=== PATIENT | male | born 1970 | race Caucasian/White ===

== ENCOUNTER 2016-12-27 17:52 | Emergency (ER) | payer MEDICAID ==
[2016-12-27] MEDS ORDERED: METHYLPREDNISOLONE INJ 125 MG/2 ML SDV IV ONE (18:38)
[2016-12-27] MEDS ORDERED: IPRATROPIUM/ALBUTEROL 0.5-2.5 MG/3 ML AMPUL NEB ONE (18:39)
--- NOTE | 2016-12-27 18:43 | ER Document Report ---
ED Medical Screen (RME) - General Chief Complaint: Shortness Of Breath Stated Complaint: SHORTNESS OF BREATH Time Seen by Provider: 12/27/16 18:21 Mode of Arrival: Ambulatory Information source: Patient Notes: 46-year-old male presents to ED for shortness of breath 3 days. He states he is having trouble catching his breath. Pulse ox is 93%. Blood pressure is 169/ 106 with a pulse of 91. He states he thought he had a cold took Mucinex but is not feeling any better and is very short of breath. Lung sounds are diminished bilaterally. 3+ pedal edema bilaterally. Patient has a history of elevated blood pressure states he takes clonidine Lasix Lopressor and potassium chloride. He states he also uses a CPAP at night. He states he is not on oxygen at home. I have greeted and performed a rapid initial assessment of this patient. A comprehensive ED assessment and evaluation of the patient, analysis of test results and completion of medical decision making process will be conducted by an additional ED providers. TRAVEL OUTSIDE OF THE [place] IN LAST 30 DAYS: No - HPI Onset: Other - 3 days Onset/Duration: Gradual, Worse Quality of pain: Other - tight Associated Symptoms: Cough (productive), Shortness of breath, Sinus pain/ drainage Exacerbated by: Movement Relieved by: Denies Similar symptoms previously: Yes Recently seen / treated by doctor: No - Related Data Smoking: Other - former Allergies/Adverse Reactions: No Known Allergies Allergy (Verified 12/31/14 22:32) Home Medications: Current Home Medications Baclofen [Baclofen 10 mg Tablet] 10 mg PO QAM 12/27/16 [History] Fluticasone/Vilanterol [Breo Ellipta 100-25 Mcg INH] 1 each IH DAILY 12/27/16 [ History] Losartan/Hydrochlorothiazide [Hyzaar 100-12.5 Tablet] 1 each PO DAILY 12/27/16 [ History] Past Medical History - Social History Chew tobacco use (# tins/day): No Frequency of alcohol use: Occasional Drug Abuse: None - Past Medical History Cardiac Medical History: Reports: Hx Hypertension Pulmonary Medical History: Reports: Hx COPD Renal/ Medical History: Denies: Hx Peritoneal Dialysis Psychiatric Medical History: Denies: Hx Depression - Immunizations Hx Diphtheria, Pertussis, Tetanus Vaccination: Yes Physical Exam - Vital signs Vitals: Temp Pulse Resp BP Pulse Ox 98.4 F 93 24 H 149/95 H 93 12/27/16 17:56 12/27/16 17:56 12/27/16 17:56 12/27/16 17:56 12/27/16 17:56 Course - Vital Signs Vital signs: Temp Pulse Resp BP Pulse Ox 98.4 F 93 24 H 149/95 H 93 12/27/16 17:56 12/27/16 17:56 12/27/16 17:56 12/27/16 17:56 12/27/16 17:56
[2016-12-27] MEDS ORDERED: ALBUTEROL SULFATE 0.083% NEB 2.5 MG/3 ML AMPUL NEB SCH (18:45)
--- NOTE | 2016-12-27 19:13 | RADIOLOGY REPORT (SQ) ---
EXAM DESCRIPTION: CHEST PA/LAT COMPLETED DATE/TIME: 12/27/2016 6:57 pm REASON FOR STUDY: cough short of breath COMPARISON: 01/01/2015. EXAM PARAMETERS: NUMBER OF VIEWS: two views TECHNIQUE: Digital Frontal and Lateral radiographic views of the chest acquired. RADIATION DOSE: NA LIMITATIONS: none FINDINGS: LUNGS AND PLEURA: No opacities, masses or pneumothorax. No pleural effusion. MEDIASTINUM AND HILAR STRUCTURES: No masses or contour abnormalities. HEART AND VASCULAR STRUCTURES: Heart normal size. No evidence for failure. BONES: No acute findings. HARDWARE: None in the chest. OTHER: No other significant finding. IMPRESSION: NO ACUTE RADIOGRAPHIC FINDING IN THE CHEST. TECHNICAL DOCUMENTATION: JOB ID: [id number] [employer]- All Rights Reserved
--- NOTE | 2016-12-27 19:20 | ER Document Report ---
ED Respiratory Problem - General Chief Complaint: Shortness Of Breath Stated Complaint: SHORTNESS OF BREATH Time Seen by Provider: 12/27/16 18:21 Mode of Arrival: Ambulatory Notes: Patient is a 46-year-old male who comes emergency department for chief complaint of shortness of breath, cough, congestion, he states this has been worsening for about 3 days, he states he coughed a lot of sputum out earlier today after taking Mucinex. He smokes, he has a history of COPD, he wears a CPAP at night for sleep apnea, does not wear oxygen otherwise. He also is treated for hypertension, he denies other medical history. He denies chest pain , fever, dizziness, abdominal pain, vomiting. TRAVEL OUTSIDE OF THE [place] IN LAST 30 DAYS: No - Related Data Allergies/Adverse Reactions: No Known Allergies Allergy (Verified 12/31/14 22:32) Home Medications: Current Home Medications Baclofen [Baclofen 10 mg Tablet] 10 mg PO QAM 12/27/16 [History] Fluticasone/Vilanterol [Breo Ellipta 100-25 Mcg INH] 1 each IH DAILY 12/27/16 [ History] Losartan/Hydrochlorothiazide [Hyzaar 100-12.5 Tablet] 1 each PO DAILY 12/27/16 [ History] Past Medical History - General Information source: Patient - Social History Smoking Status: Current Every Day Smoker Chew tobacco use (# tins/day): No Frequency of alcohol use: Occasional Drug Abuse: None Lives with: Alone Family History: Reviewed & Not Pertinent - Past Medical History Cardiac Medical History: Reports: Hx Hypertension Pulmonary Medical History: Reports: Hx COPD Renal/ Medical History: Denies: Hx Peritoneal Dialysis Psychiatric Medical History: Denies: Hx Depression Surgical Hx: Negative - Immunizations Hx Diphtheria, Pertussis, Tetanus Vaccination: Yes Review of Systems - Review of Systems Constitutional: No symptoms reported EENT: No symptoms reported Cardiovascular: No symptoms reported Respiratory: See HPI Gastrointestinal: No symptoms reported Genitourinary: No symptoms reported Male Genitourinary: No symptoms reported Musculoskeletal: No symptoms reported Skin: No symptoms reported Hematologic/Lymphatic: No symptoms reported Neurological/Psychological: No symptoms reported Physical Exam - Vital signs Vitals: Temp Pulse Resp BP Pulse Ox 98.4 F 93 24 H 149/95 H 93 12/27/16 17:56 12/27/16 17:56 12/27/16 17:56 12/27/16 17:56 12/27/16 17:56 Interpretation: Normal - General General appearance: Appears well, Alert In distress: None - HEENT Head: Normocephalic, Atraumatic Eyes: Normal Pupils: PERRL - Respiratory Respiratory status: No respiratory distress. No: Respiratory distress, Labored , Tachypnea Chest status: Nontender Breath sounds: Decreased air movement, Wheezing - Small amount of end expiratory wheezes noted on the left side only, decreased breath sounds throughout, otherwise unremarkable lung auscultation Chest palpation: Normal - Cardiovascular Rhythm: Regular. No: Tachycardia Heart sounds: Normal auscultation, S1 appreciated, S2 appreciated Murmur: No - Abdominal Inspection: Normal Distension: No distension Bowel sounds: Normal Tenderness: Nontender. No: Tender, Guarding Organomegaly: No organomegaly - Back Back: Normal, Nontender - Extremities General upper extremity: Normal inspection, Nontender, Normal color, Normal ROM , Normal temperature General lower extremity: Other - Chronic lower extremity discoloration, no pitting edema, unremarkable extremity as otherwise, normal distal neurovascular exam. No: Edema - Neurological Neuro grossly intact: Yes Cognition: Normal Orientation: AAOx4 [place] Coma Scale Eye Opening: Spontaneous [place] Coma Scale Verbal: Oriented [place] Coma Scale Motor: Obeys Commands [place] Coma Scale Total: 15 Speech: Normal Motor strength normal: LUE, RUE, LLE, RLE Sensory: Normal - Psychological Associated symptoms: Normal affect, Normal mood - Skin Skin Temperature: Warm Skin Moisture: Dry Skin Color: Normal Course - Re-evaluation Re-evalutation: Patient with minimal expiratory wheezes on my examination, this resolved after a single treatment, well-appearing with no tachypnea, retractions, no hypoxia on room air. Chest x-ray unremarkable, CBC, chemistry unremarkable, EKG with no acute abnormalities. Discussed with patient, he states he feels much better and he would like to be treated at home. Patient ambulated with pulse oxygenation testing without any concerning desaturations or significant tachycardia. He does not appear to have any distress and stopped mild tachypnea almost immediately after resting. Patient discharged home with prednisone, doxycycline, follow-up instructions and strict return precautions. Patient states satisfaction and agreement. - Vital Signs Vital signs: Temp Pulse Resp BP Pulse Ox 98.4 F 93 24 H 149/89 H 91 L 12/27/16 17:56 12/27/16 17:56 12/27/16 17:56 12/27/16 22:00 12/27/16 22:01 - Laboratory Result Diagrams: 12/27/16 20:12 12/27/16 20:12 Laboratory results interpreted by me: 12/27/16 12/27/16 20:12 20:12 Monocytes % 13.6 H Carbon Dioxide 32 H Creatine Kinase 172 H Discharge - Discharge Clinical Impression: Shortness of breath, COPD exacerbation Condition: Stable Disposition: HOME, SELF-CARE Additional Instructions: Your chest x-ray and workup did not show any concerning findings, your examination and symptoms are consistent with an upper respiratory source of your symptoms along with your sinuses. Take the prednisone as prescribed, take the doxycycline antibiotic as prescribed, rest. Follow-up with your primary care provider. Return to emergency department for any concerning or worsening symptoms -worsening difficulty breathing, spiking fever, or any other concerning symptoms. Prescriptions: Doxycycline Hyclate 100 mg PO BID #14 capsule Prednisone 60 mg PO DAILY #15 tablet
--- NOTE | 2016-12-27 20:18 | EKG REPORT ---
SEVERITY:- OTHERWISE NORMAL ECG - SINUS RHYTHM ATRIAL PREMATURE COMPLEX : Confirmed by: Kamryn Nolasco MD 27-Dec-2016 20:17:44
[2016-12-27 20:29] LABS: ABSOLUTE BASOPHILS # (AUTO) 0.1 10^3/uL (0.0-0.2); ABSOLUTE EOSINOPHILS # (AUTO) 0.3 10^3/uL (0.0-0.6); ABSOLUTE MONOCYTES (AUTO) 0.9 10^3/uL (0.1-1.4); ABSOLUTE NEUT (AUTO) 3.2 10^3/uL (1.7-8.2); BASOPHILS % (AUTO) 1.1 % (0-2); EOSINOPHILS % (AUTO) 4.6 % (0-6); HEMATOCRIT 46.7 % (37.9-51.0); HEMOGLOBIN 16.6 g/dL (13.5-17.0); HGB HCT DIFFERENCE 3.1; MEAN CORPUSCULAR HEMOGLOBIN 30.9 pg (27.0-33.4); MEAN CORPUSCULAR HGB CONC 35.5 g/dL (32.0-36.0); MEAN CORPUSCULAR VOLUME 87 fl (80-97); MONOCYTES % (AUTO) 13.6 % (3-13); RED BLOOD COUNT 5.37 10^6/uL (4.35-5.55); RED CELL DISTRIBUTION WIDTH 13.9 % (11.5-14.0); SEGMENTED NEUTROPHILS % (AUTO) 49.7 % (42-78); WHITE BLOOD COUNT 6.4 10^3/uL (4.0-10.5)
[2016-12-27 20:53] LABS: ALANINE AMINOTRANSFERASE 64 U/L (21-72); ALBUMIN 4.2 g/dL (3.5-5.0); ALKALINE PHOSPHATASE 84 U/L (38-126); ANION GAP 11 (5-19); ASPARTATE AMINO TRANSFERASE 43 U/L (17-59); BILIRUBIN,DIRECT 0.4 mg/dL (0.0-0.4); BILIRUBIN,TOTAL 0.7 mg/dL (0.2-1.3); BLOOD UREA NITROGEN 14 mg/dL (7-20); CALCIUM 9.5 mg/dL (8.4-10.2); CARBON DIOXIDE 32 mmol/L (22-30); CHLORIDE 99 mmol/L (98-107); CREATINE KINASE 172 U/L (55-170); CREATININE RESULT 0.87 mg/dL (0.52-1.25); GLUCOSE 99 mg/dL (75-110); SODIUM 142.2 mmol/L (137-145); TOTAL PROTEIN 7.4 g/dL (6.3-8.2)
[2016-12-27 21:04] LABS: CREATINE KINASE MB 1.88 ng/mL (<4.55)
[2016-12-27 21:05] LABS: TROPONIN I < 0.012 ng/mL
[2016-12-27 22:09] VITALS: BP 149/89
== END 2016-12-27 22:09 | disposition home or self-care (01) ==
LOC: ER 17:52
DX: J44.1 Chronic obstructive pulmonary disease with (acute) exacerbation (principal); I10 Essential (primary) hypertension; F17.200 Nicotine dependence, unspecified, uncomplicated
CPT/HCPCS: 93005; 94640; 99285; 96374; 36415; 82553; 82550; 85025; 80053; 84484; 71020; 93010; J2930; J7620

== ENCOUNTER 2017-04-15 18:57 | Emergency (ER) | payer MEDICAID ==
--- NOTE | 2017-04-15 19:52 | ER Document Report ---
ED Medical Screen (RME) - General Chief Complaint: Breathing Difficulty Stated Complaint: BREATHING PROBLEMS Time Seen by Provider: 04/15/17 19:45 Mode of Arrival: Ambulatory Information source: Patient Notes: 46 yo obese male, HTN c/o having trouble breathing through his nose with exertion going on for a while, but worse past few weeks, has to stop to catch his breath. Nothing helps, albuterol nebulizer, MDI, Breo. No PCP: Rupali Christie. Thinks he has a deviated septum, uses Vicks Sinex helps some, using the nasal spray several times a day. Hx COPD, CPAP at night. No CAD, no CHF. Lower leg swelling for 1 month. No stress, cath, or echo. Hospitalized with leg cellulitis in the past. pulse ox 93% NO fever. TRAVEL OUTSIDE OF THE [place] IN LAST 30 DAYS: No - Related Data Allergies/Adverse Reactions: No Known Allergies Allergy (Verified 12/31/14 22:32) Past Medical History - Past Medical History Cardiac Medical History: Reports: Hx Hypertension Pulmonary Medical History: Reports: Hx COPD Renal/ Medical History: Denies: Hx Peritoneal Dialysis Psychiatric Medical History: Denies: Hx Depression - Immunizations Hx Diphtheria, Pertussis, Tetanus Vaccination: Yes Physical Exam - Vital signs Vitals: Temp Pulse Resp BP Pulse Ox 98.4 F 98 24 H 175/99 H 92 04/15/17 19:15 04/15/17 19:15 04/15/17 19:15 04/15/17 19:15 04/15/17 19:15 Course - Vital Signs Vital signs: Temp Pulse Resp BP Pulse Ox 98.4 F 98 24 H 175/99 H 92 04/15/17 19:15 04/15/17 19:15 04/15/17 19:15 04/15/17 19:15 04/15/17 19:15
[2017-04-15] MEDS ORDERED: IPRATROPIUM/ALBUTEROL 0.5-2.5 MG/3 ML AMPUL NEB ONE (19:56)
[2017-04-15] MEDS ORDERED: ASPIRIN 81 MG TABLET, CHEWABLE PO ONE (19:57)
[2017-04-15] MEDS ORDERED: ALBUTEROL SULFATE 0.083% NEB 2.5 MG/3 ML AMPUL NEB ONE (19:57)
[2017-04-15 21:30] LABS: ABSOLUTE BASOPHILS # (AUTO) 0.1 10^3/uL (0.0-0.2); ABSOLUTE EOSINOPHILS # (AUTO) 0.5 10^3/uL (0.0-0.6); ABSOLUTE LYMPHOCYTES (AUTO) 2.8 10^3/uL (0.5-4.7); ABSOLUTE MONOCYTES (AUTO) 0.8 10^3/uL (0.1-1.4); ABSOLUTE NEUT (AUTO) 5.4 10^3/uL (1.7-8.2); BASOPHILS % (AUTO) 0.9 % (0-2); EOSINOPHILS % (AUTO) 5.4 % (0-6); HEMATOCRIT 48.4 % (37.9-51.0); HEMOGLOBIN 16.9 g/dL (13.5-17.0); LYMPHOCYTES % (AUTO) 29.3 % (13-45); MEAN CORPUSCULAR HEMOGLOBIN 30.7 pg (27.0-33.4); MEAN CORPUSCULAR HGB CONC 34.8 g/dL (32.0-36.0); MEAN CORPUSCULAR VOLUME 88 fl (80-97); PLATELET COUNT 281 10^3/uL (150-450); RED BLOOD COUNT 5.49 10^6/uL (4.35-5.55); RED CELL DISTRIBUTION WIDTH 13.7 % (11.5-14.0); SEGMENTED NEUTROPHILS % (AUTO) 56.4 % (42-78); TOTAL CELLS COUNTED % (AUTO) 100 %; WHITE BLOOD COUNT 9.5 10^3/uL (4.0-10.5)
--- NOTE | 2017-04-15 21:34 | RADIOLOGY REPORT (SQ) ---
EXAM DESCRIPTION: CHEST PA/LAT COMPLETED DATE/TIME: 04/15/2017 9:18 pm REASON FOR STUDY: chest pain, shortness of breath COMPARISON: 2017. TECHNIQUE: Frontal and lateral radiographic views of the chest acquired. NUMBER OF VIEWS: Two view. LIMITATIONS: None. FINDINGS: LUNGS AND PLEURA: No opacities, masses or pneumothorax. No pleural effusion. MEDIASTINUM AND HILAR STRUCTURES: No masses or contour abnormalities. HEART AND VASCULAR STRUCTURES: Heart normal size. No evidence for failure. BONES: No acute findings. HARDWARE: None in the chest. OTHER: No other significant finding. IMPRESSION: NO SIGNIFICANT RADIOGRAPHIC FINDING IN THE CHEST. TECHNICAL DOCUMENTATION: JOB ID: [id number] [employer]- All Rights Reserved
[2017-04-15 21:39] LABS: ALANINE AMINOTRANSFERASE 53 U/L (21-72); ALBUMIN 4.5 g/dL (3.5-5.0); ALKALINE PHOSPHATASE 72 U/L (38-126); ANION GAP 8 (5-19); ASPARTATE AMINO TRANSFERASE 31 U/L (17-59); BILIRUBIN,DIRECT 0.2 mg/dL (0.0-0.4); BILIRUBIN,TOTAL 0.6 mg/dL (0.2-1.3); BLOOD UREA NITROGEN 15 mg/dL (7-20); CARBON DIOXIDE 35 mmol/L (22-30); CHLORIDE 96 mmol/L (98-107); CREATINE KINASE 128 U/L (55-170); GLUCOSE 133 mg/dL (75-110); POTASSIUM 3.9 mmol/L (3.6-5.0); SODIUM 139.2 mmol/L (137-145); TOTAL PROTEIN 7.1 g/dL (6.3-8.2)
[2017-04-15 21:51] LABS: CREATINE KINASE MB 1.23 ng/mL (<4.55); NT PRO BNP 34 pg/mL (<125)
[2017-04-15 21:56] LABS: TROPONIN I < 0.012 ng/mL
--- NOTE | 2017-04-15 22:33 | EKG REPORT ---
SEVERITY:- ABNORMAL ECG - SINUS RHYTHM CONSIDER ANTEROSEPTAL INFARCT : Confirmed by: Walt Castillo 15-Apr-2017 22:32:35
--- NOTE | 2017-04-16 00:14 | ER Document Report ---
ED General - General Chief Complaint: Breathing Difficulty Stated Complaint: BREATHING PROBLEMS Time Seen by Provider: 04/15/17 19:45 Mode of Arrival: Ambulatory Information source: Patient Notes: 46-year-old male with extensive medical history presents with complaints of difficulty breathing. Patient is very clear in stating that the difficulty breathing is not in his lungs, it is in his nose. Patient notes that he feels congested and that if he moves his nose that it opens up and he is able to breathe with no difficulty but when he does not touch his nose it is difficult to breathe through it. Patient has CPAP at night TRAVEL OUTSIDE OF THE [place] IN LAST 30 DAYS: No - HPI Onset: Other - 2-3 month duration Onset/Duration: Persistent Quality of pain: No pain Severity: Mild Pain Level: Denies Associated symptoms: Shortness of breath, Other Exacerbated by: Denies Relieved by: Other - Moving his nostrils Similar symptoms previously: No Recently seen / treated by doctor: No - Related Data Allergies/Adverse Reactions: No Known Allergies Allergy (Verified 12/31/14 22:32) Past Medical History - General Information source: Patient - Social History Smoking Status: Current Every Day Smoker Cigarette use (# per day): Yes Chew tobacco use (# tins/day): No Smoking Education Provided: No Frequency of alcohol use: None Drug Abuse: None Family History: Reviewed & Not Pertinent Patient has suicidal ideation: No Patient has homicidal ideation: No - Past Medical History Cardiac Medical History: Reports: Hx Hypertension Pulmonary Medical History: Reports: Hx COPD Renal/ Medical History: Denies: Hx Peritoneal Dialysis Psychiatric Medical History: Denies: Hx Depression - Immunizations Hx Diphtheria, Pertussis, Tetanus Vaccination: Yes Review of Systems - Review of Systems Notes: REVIEW OF SYSTEMS: CONSTITUTIONAL : Denies fever, chills, or sweats. Denies recent illness. EENT: Admits nasal congestion CARDIOVASCULAR: Denies chest pain. Denies palpitations or racing or irregular heart beat. Denies ankle edema. RESPIRATORY: Admits to difficulty breathing GASTROINTESTINAL: Denies abdominal pain or distention. Denies nausea, vomiting , or diarrhea. Denies blood in vomitus, stools, or per rectum. Denies black, tarry stools. Denies constipation. GENITOURINARY: Denies difficulty urinating, painful urination, burning, frequency, blood in urine, or discharge. MUSCULOSKELETAL: Denies back or neck pain or stiffness. Denies joint pain or swelling. SKIN: Denies rash, lesions or sores. HEMATOLOGIC : Denies easy bruising or bleeding. LYMPHATIC: Denies swollen, enlarged glands. NEUROLOGICAL: Denies confusion or altered mental status. Denies passing out or loss of consciousness. Denies dizziness or lightheadedness. Denies headache. Denies weakness or paralysis or loss of use of either side. Denies problems with gait or speech. Denies sensory loss, numbness, or tingling. Denies seizures. PSYCHIATRIC: Denies anxiety or stress. Denies depression, suicidal ideation, or homicidal ideation. ALL OTHER SYSTEMS REVIEWED AND NEGATIVE. Dictation was performed using [employer] voice recognition software PHYSICAL EXAMINATION: GENERAL: Morbidly obese male HEAD: Atraumatic, normocephalic. EYES: Pupils equal round and reactive to light, extraocular movements intact, sclera anicteric, conjunctiva are normal. ENT: Nares patent, oropharynx clear without exudates. Moist mucous membranes. NECK: Normal range of motion, supple without lymphadenopathy LUNGS: Breath sounds clear to auscultation bilaterally and equal. No wheezes rales or rhonchi. HEART: Regular rate and rhythm without murmurs ABDOMEN: Soft, nontender, nondistended abdomen. No guarding, no rebound. No masses appreciated. Musculoskeletal: Normal range of motion, no pitting or edema. No cyanosis. NEUROLOGICAL: Cranial nerves grossly intact. Normal speech, normal gait. Normal sensory, motor exams PSYCH: Normal mood, normal affect. SKIN: Warm, Dry, normal turgor, no rashes or lesions noted. Physical Exam - Vital signs Vitals: Temp Pulse Resp BP Pulse Ox 98.4 F 98 24 H 175/99 H 92 04/15/17 19:15 04/15/17 19:15 04/15/17 19:15 04/15/17 19:15 04/15/17 19:15 Course - Re-evaluation Re-evalutation: 04/16/17 06:54 On examination patient's breathing issues do not appear to be secondary to any lung or cardiac concern, lab work noted no significant abnormality, patient overall appears to be at his baseline, he does note interestingly enough that when he picks up the tip of his nose that his breathing improves 100%, therefore I will give him follow-up with ENT as well as treated for allergic sinusitis After performing a Medical Screening Examination, I estimate there is LOW risk for ACUTE CORONARY SYNDROME, PULMONARY EMBOLI, RESPIRATORY FAILURE, SEPSIS OR MENINGITIS, thus I consider the discharge disposition reasonable. I have reevaluated this patient multiple times and no significant life threatening changes are noted. The patient and I have discussed the diagnosis and risks, and we agree with discharging home with close follow-up. We also discussed returning to the Emergency Department immediately if new or worsening symptoms occur. We have discussed the symptoms which are most concerning (e.g., changing or worsening pain, trouble swallowing or breathing, neck stiffness, fever) that necessitate immediate return. - Vital Signs Vital signs: Temp Pulse Resp BP Pulse Ox 97.8 F 98 19 139/90 H 100 04/16/17 00:01 04/15/17 19:15 04/16/17 00:01 04/16/17 00:01 04/16/17 00:01 - Laboratory Result Diagrams: 04/15/17 21:12 04/15/17 21:12 Laboratory results interpreted by me: 04/15/17 21:12 Chloride 96 L Carbon Dioxide 35 H Glucose 133 H - Diagnostic Test Radiology reviewed: Image reviewed, Reports reviewed Discharge - Discharge Clinical Impression: Allergic sinusitis, Difficulty breathing, Morbid obesity with BMI of 50.0-59.9 , adult Condition: Stable Disposition: HOME, SELF-CARE Instructions: Sinusitis ([facility]) Additional Instructions: Please contact the following office for an appointment tomorrow or returm immediately if there are any other concerns [facility] [employer] Address: [address] [place], [place] [id number] Prescriptions: Prednisone [Deltasone 20 mg Tablet] 3 tab PO DAILY 5 Days tablet Referrals: ROSALEE MARTINEZ FNP [Primary Care Provider] - Follow up as needed
[2017-04-16 00:32] VITALS: BP 139/90
== END 2017-04-16 00:25 | disposition home or self-care (01) ==
LOC: ER 18:57
DX: J30.9 Allergic rhinitis, unspecified (principal); R06.00 Dyspnea, unspecified; E66.01 Morbid (severe) obesity due to excess calories; Z68.43 Body mass index [BMI] 50.0-59.9, adult; F17.210 Nicotine dependence, cigarettes, uncomplicated; I10 Essential (primary) hypertension; J44.9 Chronic obstructive pulmonary disease, unspecified
CPT/HCPCS: 93005; 94640 ×2; 99285; 36415; 82553; 82550; 85025; 84484; 80053; 83880; 71046; 93010; J7620

== ENCOUNTER → 2017-05-02 | Outpatient (CLI) | payer MEDICAID ==
--- NOTE | 2017-05-02 15:19 | WOMENS IMAGING REPORT ---
EXAM DESCRIPTION: BILAT DIAGNOSTIC MAMMO W/CAD; U/S BREAST UNILATERAL, COMPL COMPLETED DATE/TIME: 05/02/2017 10:59 am; 05/02/2017 11:27 am REASON FOR STUDY: MASTODYNIA; N64.4; RT BREAST PAIN; N64.4 N64.4 MASTODYNIA COMPARISON: None. TECHNIQUE: Standard craniocaudal and mediolateral oblique views of each breast recorded using digita l acquisition. Additional right male breast cone compression in the CC and MLO orientations, right male whole breast 90 mediolateral view. Right breast ultrasound. LIMITATIONS: None. FINDINGS: RIGHT BREAST MASSES: No suspicious masses. CALCIFICATIONS: No new or suspicious calcifications. ARCHITECTURAL DISTORTION: None. DEVELOPING DENSITY: None. ASYMMETRY: None noted. OTHER: Moderate right gynecomastia. LEFT BREAST MASSES: No suspicious masses. CALCIFICATIONS: No new or suspicious calcifications. ARCHITECTURAL DISTORTION: None. DEVELOPING DENSITY: None. ASYMMETRY: None noted. OTHER: Moderate left gynecomastia Read with the assistance of CAD: .[facility] - R2 Cenova Version 1.3 .[facility] - R2 Cenova Version 1.3 .[facility] - R2 Cenova Version 2.4 .[facility] - R2 Cenova Version 2.4 .[facility] - R2 [employer] Director Version 9.2 Bilateral ultrasound: Ultrasound of the right and left male breast demonstrates bilateral gynecomast ia right greater than left. No cystic or solid lesions. No worrisome acoustic absorption. IMPRESSION: No mammographic or sonographic evidence for malignancy right male breast. No mammographic evidence for malignancy left male breast. Bilateral gynecomastia BREAST DENSITY: a. The breasts are almost entirely fatty. BIRAD: 2 Benign findings. RECOMMENDATION: RECOMMENDED FOLLOW UP: Clinical follow-up SPECIFIC INTERVENTION/IMAGING/CONSULTATION RECOMMENDED:As above COMMUNICATION:Patient notified by letter COMMENT: The patient has been notified of the results by letter per SA requirements. Additional no tification policies are in place for contacting patient with suspicious or incomplete findings. Quality ID #[id number]: The [employer] recommends an annual screening mammogram for women aged 40 years or over. This facility utilizes a reminder system to ensure that all patients receive reminder letters, and/or direct phone calls for appointments. This includes reminders for routine scr eening mammograms, diagnostic mammograms, or other Breast Imaging Interventions when appropriate. Th is patient will be placed in the appropriate reminder system. The [employer] (ACR) has developed recommendations for screening MRI of the breast s in certain patient populations, to be used in conjunction with mammography. Breast MRI surveillanc e may be appropriate for women with more than 20% lifetime risk of developing breast cancer as deter mined by genetic testing, significant family history of the disease, or history of mantle radiation f or Hodgkins Disease. ACR Practice Guidelines 2008. TECHNICAL DOCUMENTATION: FINDING NUMBER: (1) ASSESSMENT: (1) JOB ID: [id number] [employer]- All Rights Reserved
--- NOTE | 2017-05-02 15:19 | WOMENS IMAGING REPORT ---
EXAM DESCRIPTION: BILAT DIAGNOSTIC MAMMO W/CAD; U/S BREAST UNILATERAL, COMPL COMPLETED DATE/TIME: 05/02/2017 10:59 am; 05/02/2017 11:27 am REASON FOR STUDY: MASTODYNIA; N64.4; RT BREAST PAIN; N64.4 N64.4 MASTODYNIA COMPARISON: None. TECHNIQUE: Standard craniocaudal and mediolateral oblique views of each breast recorded using digita l acquisition. Additional right male breast cone compression in the CC and MLO orientations, right male whole breast 90 mediolateral view. Right breast ultrasound. LIMITATIONS: None. FINDINGS: RIGHT BREAST MASSES: No suspicious masses. CALCIFICATIONS: No new or suspicious calcifications. ARCHITECTURAL DISTORTION: None. DEVELOPING DENSITY: None. ASYMMETRY: None noted. OTHER: Moderate right gynecomastia. LEFT BREAST MASSES: No suspicious masses. CALCIFICATIONS: No new or suspicious calcifications. ARCHITECTURAL DISTORTION: None. DEVELOPING DENSITY: None. ASYMMETRY: None noted. OTHER: Moderate left gynecomastia Read with the assistance of CAD: .[facility] - R2 Cenova Version 1.3 .[facility] - R2 Cenova Version 1.3 .[facility] - R2 Cenova Version 2.4 .[facility] [place] R2 Cenova Version 2.4 .[facility] - R2 [employer]cher All Round Version 9.2 Bilateral ultrasound: Ultrasound of the right and left male breast demonstrates bilateral gynecomast ia right greater than left. No cystic or solid lesions. No worrisome acoustic absorption. IMPRESSION: No mammographic or sonographic evidence for malignancy right male breast. No mammographic evidence for malignancy left male breast. Bilateral gynecomastia BREAST DENSITY: a. The breasts are almost entirely fatty. BIRAD: 2 Benign findings. RECOMMENDATION: RECOMMENDED FOLLOW UP: Clinical follow-up SPECIFIC INTERVENTION/IMAGING/CONSULTATION RECOMMENDED:As above COMMUNICATION:Patient notified by letter COMMENT: The patient has been notified of the results by letter per SA requirements. Additional no tification policies are in place for contacting patient with suspicious or incomplete findings. Quality ID #[id number]: The [employer] recommends an annual screening mammogram for women aged 40 years or over. This facility utilizes a reminder system to ensure that all patients receive reminder letters, and/or direct phone calls for appointments. This includes reminders for routine scr eening mammograms, diagnostic mammograms, or other Breast Imaging Interventions when appropriate. Th is patient will be placed in the appropriate reminder system. The [employer] (ACR) has developed recommendations for screening MRI of the breast s in certain patient populations, to be used in conjunction with mammography. Breast MRI surveillanc e may be appropriate for women with more than 20% lifetime risk of developing breast cancer as deter mined by genetic testing, significant family history of the disease, or history of mantle radiation f or Hodgkins Disease. ACR Practice Guidelines 2008. TECHNICAL DOCUMENTATION: FINDING NUMBER: (1) ASSESSMENT: (1) JOB ID: [id number] [employer]- All Rights Reserved
== END ==
LOC: WI 10:38
PROVIDERS: ATTEND Nurse Practitioner
DX: N64.4 Mastodynia (principal)
CPT/HCPCS: 76641; 77066

== ENCOUNTER 2017-09-03 20:57 | Inpatient (IN) | payer MEDICAID ==
[2017-09-03 23:16] LABS: ABSOLUTE BASOPHILS # (AUTO) 0.2 10^3/uL (0.0-0.2); ABSOLUTE EOSINOPHILS # (AUTO) 0.3 10^3/uL (0.0-0.6); ABSOLUTE LYMPHOCYTES (AUTO) 2.2 10^3/uL (0.5-4.7); ABSOLUTE MONOCYTES (AUTO) 1.1 10^3/uL (0.1-1.4); ABSOLUTE NEUT (AUTO) 9.2 10^3/uL (1.7-8.2); BASOPHILS % (AUTO) 1.3 % (0-2); EOSINOPHILS % (AUTO) 2.1 % (0-6); HEMATOCRIT 44.5 % (37.9-51.0); HEMOGLOBIN 15.5 g/dL (13.5-17.0); LYMPHOCYTES % (AUTO) 17.2 % (13-45); MEAN CORPUSCULAR HEMOGLOBIN 30.3 pg (27.0-33.4); MEAN CORPUSCULAR HGB CONC 34.7 g/dL (32.0-36.0); MEAN CORPUSCULAR VOLUME 87 fl (80-97); MONOCYTES % (AUTO) 8.2 % (3-13); PLATELET COUNT 289 10^3/uL (150-450); SEGMENTED NEUTROPHILS % (AUTO) 71.2 % (42-78); TOTAL CELLS COUNTED % (AUTO) 100 %; WHITE BLOOD COUNT 12.9 10^3/uL (4.0-10.5)
[2017-09-03 23:25] LABS: ALANINE AMINOTRANSFERASE 54 U/L (21-72); ALBUMIN 4.3 g/dL (3.5-5.0); ALKALINE PHOSPHATASE 81 U/L (38-126); ANION GAP 9 (5-19); ASPARTATE AMINO TRANSFERASE 26 U/L (17-59); BILIRUBIN,DIRECT 0.4 mg/dL (0.0-0.4); BILIRUBIN,TOTAL 0.8 mg/dL (0.2-1.3); BLOOD UREA NITROGEN 17 mg/dL (7-20); CALCIUM 9.3 mg/dL (8.4-10.2); CARBON DIOXIDE 33 mmol/L (22-30); CHLORIDE 98 mmol/L (98-107); GLUCOSE 200 mg/dL (75-110); POTASSIUM 4.6 mmol/L (3.6-5.0); SODIUM 139.5 mmol/L (137-145); TOTAL PROTEIN 7.1 g/dL (6.3-8.2)
[2017-09-03 23:40] LABS: INTERNATIONAL RATION (INR) 0.97; PROTHROMBIN TIME 13.3 SEC (11.4-15.4)
[2017-09-04 00:50] LABS: AMORPHOUS SEDIMENT,URINE TRACE /HPF; APPEARANCE,URINE CLOUDY; BILIRUBIN,URINE NEGATIVE (NEGATIVE); COLOR,URINE YELLOW; GLUCOSE, URINE >=500 mg/dL (NEGATIVE); KETONES,URINE NEGATIVE (NEGATIVE); LEUKOCYTE ESTERASE,URINE TRACE (NEGATIVE); NITRITE,URINE NEGATIVE (NEGATIVE); PROTEIN,URINE NEGATIVE (NEGATIVE)
[2017-09-04] MEDS ORDERED: CEFTRIAXONE INJ 1000 MG VIAL IV ONE (00:50)
[2017-09-04] MEDS ORDERED: VANCOMYCIN HCL INJ 1000 MG VIAL IV ONE (00:50)
--- NOTE | 2017-09-04 00:54 | ER Document Report ---
ED General - General Chief Complaint: Leg Swelling Stated Complaint: POSSIBLE BITE Time Seen by Provider: 09/04/17 00:41 Notes: Patient is a 47-year-old male who presents with complaint of redness to his left lower extremity that started about 3 days ago. Is gradually worsened therefore is come to the ER. He says is not been diagnosed with diabetes yet his blood sugar here is high and he has a large amount of glucose in his urine. Does have history of hypertension and obesity as well as edema in his legs for which he takes Lasix. He has had cellulitis in his leg once before several years ago. He is followed by Dr. Gunn. He denies any vomiting. No diarrhea. No other complaints at this time. TRAVEL OUTSIDE OF THE [place] IN LAST 30 DAYS: No - Related Data Allergies/Adverse Reactions: No Known Allergies Allergy (Verified 09/03/17 20:58) Past Medical History - Social History Smoking Status: Current Every Day Smoker Chew tobacco use (# tins/day): Yes Frequency of alcohol use: None Drug Abuse: None Family History: Reviewed & Not Pertinent Patient has suicidal ideation: No Patient has homicidal ideation: No - Past Medical History Cardiac Medical History: Reports: Hx Hypertension Pulmonary Medical History: Reports: Hx COPD Renal/ Medical History: Denies: Hx Peritoneal Dialysis Psychiatric Medical History: Denies: Hx Depression - Immunizations Hx Diphtheria, Pertussis, Tetanus Vaccination: Yes Review of Systems - Review of Systems Notes: My Normal Review Basic REVIEW OF SYSTEMS: CONSTITUTIONAL : Subjective fevers today. Denies recent illness. EENT: Denies eye, ear, throat, or mouth pain or symptoms. Denies nasal or sinus congestion. CARDIOVASCULAR: Denies chest pain. RESPIRATORY: Denies cough, cold, or chest congestion. Denies shortness of breath, difficulty breathing, or wheezing. GASTROINTESTINAL: Denies abdominal pain. Denies nausea, vomiting, or diarrhea. Denies constipation. Last BM: GENITOURINARY: Denies difficulty urinating, painful urination, burning, frequency, or blood in urine. MUSCULOSKELETAL: Denies neck or back pain or joint pain or swelling. SKIN: Redness to skin of left lower extremity.. NEUROLOGICAL: Denies altered mental status or loss of consciousness. Denies headache. Denies weakness or paralysis or loss of use of either side. Denies problems with gait or speech. Denies sensory or motor loss. ALL OTHER SYSTEMS REVIEWED AND NEGATIVE. Physical Exam - Vital signs Vitals: Pulse BP Pulse Ox 98 159/101 H 94 09/03/17 21:22 09/03/17 21:22 09/03/17 21:22 - Notes Notes: General Appearance: Well nourished, alert, cooperative, no acute distress, no obvious discomfort. Vitals: reviewed, See vital signs table. Head: no swelling or tenderness to the head Eyes: PERRL, EOMI, Conjuctiva clear Mouth: No decreased moisture Lungs: No wheezing, No rales, No rhonci, No accessory muscle use, good air exchange bilaterally. Heart: Normal rate, Regular rythm, No murmur, no rub Abdomen: Normal BS, soft, No rigidity, No abdominal tenderness, No guarding, no rebound, no abdominal masses, no organomegaly Extremities: strength 5/5 in all extremities, good pulses in all extremities, no swelling or tenderness in the extremities, no edema. Skin: warm, dry, appropriate color, redness to left lower leg below the knee. I have demarcated the edges of the redness with a marking pen. Some swelling which appears to be chronic. No fluctuance to suggest abscess. Neuro: speech clear, oriented x 3, normal affect, responds appropriately to questions. Course - Re-evaluation Re-evalutation: 09/04/17 02:09 Patient has fairly extensive cellulitis of the left lower extremity. He says is not diabetic however his glucose is elevated and he has 500 glucose in his urine suggesting that his blood sugars consistently elevated. He is significantly obese and is tachycardic. These are risk factors a feel warrant admission to make sure that his cellulitis continues to improve over the next 24 hours before being sent home. I did speak with the hospitalist, Dr. Reese , who agrees to admit the patient. Dictation of this chart was performed using voice recognition software; therefore, there may be some unintended grammatical errors. - Vital Signs Vital signs: Temp Pulse Resp BP Pulse Ox 98.7 F 98 146/59 H 97 09/03/17 22:16 09/03/17 21:22 09/04/17 01:02 09/04/17 01:02 - Laboratory Result Diagrams: 09/03/17 22:56 09/03/17 22:56 Laboratory results interpreted by me: 0609/03/17 09/04/17 22:56 22:56 00:30 WBC 12.9 H Absolute Neutrophils 9.2 H Carbon Dioxide 33 H Glucose 200 H Urine Glucose (UA) >=500 H Urine Urobilinogen 4.0 H Ur Leukocyte Esterase TRACE H Discharge - Discharge Clinical Impression: Cellulitis of left leg Condition: Stable Disposition: ADMITTED OBSERVATION Admitting Provider: Hospitalist Unit Admitted: Medical Floor
[2017-09-04] MEDS ORDERED: MAGNESIUM HYDROXIDE SUSP 30 ML UDCUP PO PRN (01:55)
[2017-09-04] MEDS ORDERED: ACETAMINOPHEN 325 MG TABLET PO PRN (01:55)
[2017-09-04] MEDS ORDERED: VANCOMYCIN HCL 0 MG in DEXTROSE 5%-WATER 250 ML IV NR (02:00)
[2017-09-04] MEDS ORDERED: KETOROLAC TROMETHAMINE INJ/PF 30 MG/1 ML SDV IV PRN (02:00)
[2017-09-04] MEDS: IPRATROPIUM/ALBUTEROL 0.5-2.5 MG/3 ML AMPUL NEB PRN ×2 (03:10→11:31)
--- NOTE | 2017-09-04 05:23 | PDOC H&P ---
History of Present Illness Admission Date/PCP: 09/04/17 00:59 ANETTE CHAUDHARI Patient complains of: Left leg pain and swelling History of Present Illness: LANE MCCONNELL is a 47 year old male with a past medical history of morbid obesity, obstructive sleep apnea, venous stasis, borderline diabetes, hypertension, COPD and tobacco dependence. He presents with 1 week of pain and swelling to his left leg which is developed circumferential erythema without open ulcer or exudate. In the emergency room he is found to have leukocytosis he receives IV vancomycin and referred to the hospitalist for admission. He admits multiple previous episodes he denies recent antibiotic use, trauma, chest pain or shortness of breath. Past Medical History Cardiac Medical History: Reports: Hypertension Pulmonary Medical History: Reports: Chronic Obstructive Pulmonary Disease (COPD) , Sleep Apnea Endocrine Medical History: Reports: Diabetes Mellitus Type 2, Obesity Psychiatric Medical History: Reports: Tobacco Dependency Denies: Depression Social History Information Source: Patient Smoking Status: Current Some Day Smoker Cigarettes Packs Per Day: 1.5 Number of Years Smokin Frequency of Alcohol Use: Occasional Hx Recreational Drug Use: No Drugs: None Hx Prescription Drug Abuse: No - Advance Directive Resuscitation Status: Full Code Family History Family History: None Parental Family History Reviewed: Yes Children Family History Reviewed: Yes Sibling(s) Family History Reviewed.: Yes Medication/Allergy Home Medications: Potassium Chloride 1 tab PO DAILY 09/10/15 Losartan/Hydrochlorothiazide [Hyzaar 100-12.5 Tablet] 1 each PO DAILY 12/27/16 Albuterol Sulfate [Albuterol Sulfate 2.5mg/3 mL] 2.5 mg IH Q4HP PRN 09/04/17 Albuterol Sulfate [Proair HFA] 1 - 2 puff IH Q4 PRN 09/04/17 Clonidine HCl 0.1 mg PO DAILY 09/04/17 Fluticasone/Salmeterol [Advair 250-50 Diskus 28 dose] 1 inh IH DAILY 09/04/17 Furosemide 1 tab PO DAILY 09/04/17 Montelukast Sodium 10 mg PO QHS 09/04/17 Allergies/Adverse Reactions: No Known Allergies Allergy (Verified 09/03/17 20:58) Review of Systems Constitutional: ABSENT: chills, fever(s), headache(s), weight gain, weight loss Eyes: ABSENT: visual disturbances Ears: ABSENT: hearing changes Cardiovascular: ABSENT: chest pain, dyspnea on exertion, edema, orthropnea, palpitations Respiratory: ABSENT: cough, hemoptysis Gastrointestinal: ABSENT: abdominal pain, constipation, diarrhea, hematemesis, hematochezia, nausea, vomiting Genitourinary: ABSENT: dysuria, hematuria Musculoskeletal: ABSENT: joint swelling Integumentary: ABSENT: rash, wounds Neurological: ABSENT: abnormal gait, abnormal speech, confusion, dizziness, focal weakness, syncope Psychiatric: ABSENT: anxiety, depression, homidical ideation, suicidal ideation Endocrine: ABSENT: cold intolerance, heat intolerance, polydipsia, polyuria Hematologic/Lymphatic: ABSENT: easy bleeding, easy bruising Physical Exam Vital Signs: Temp Pulse Resp BP Pulse Ox 97.7 F 96 20 122/69 94 09/04/17 04:17 09/04/17 04:17 09/04/17 04:17 09/04/17 04:17 09/04/17 04:17 Intake & Output 09/02/17 09/03/17 09/04/17 11:59 11:59 11:59 Weight 176.1 kg General appearance: PRESENT: cooperative, mild distress, morbidly obese. ABSENT : disheveled, hard of hearing Head exam: PRESENT: atraumatic, normocephalic Eye exam: PRESENT: conjunctiva pink, EOMI, PERRLA. ABSENT: scleral icterus Ear exam: PRESENT: normal external ear exam Mouth exam: PRESENT: moist, tongue midline Neck exam: ABSENT: carotid bruit, JVD, lymphadenopathy, thyromegaly Respiratory exam: PRESENT: crackles, prolonged expiratory phas, wheezes. ABSENT : rales, rhonchi Cardiovascular exam: PRESENT: RRR. ABSENT: diastolic murmur, rubs, systolic murmur Pulses: PRESENT: normal dorsalis pedis pul Vascular exam: PRESENT: normal capillary refill GI/Abdominal exam: PRESENT: normal bowel sounds, soft. ABSENT: ascites, distended, guarding, mass, organolmegaly, rebound, tenderness Rectal exam: PRESENT: deferred Extremities exam: PRESENT: full ROM, tenderness, +1 edema. ABSENT: calf tenderness, clubbing, pedal edema Neurological exam: PRESENT: alert, awake, oriented to person, oriented to place , oriented to time, oriented to situation, CN II-XII grossly intact. ABSENT: motor sensory deficit Psychiatric exam: PRESENT: appropriate affect, normal mood. ABSENT: homicidal ideation, suicidal ideation Skin exam: PRESENT: erythema, intact, warm. ABSENT: abrasion, cyanosis, dry Assessment & Plan - Diagnosis (1) Hyperglycemia Is this a current diagnosis for this admission?: Yes Plan: Denies formal diagnosis of diabetes, A1c ordered anticipate positive results diabetic diet and education (2) Obstructive sleep apnea Is this a current diagnosis for this admission?: Yes Plan: BiPAP support (3) Cellulitis of left leg Is this a current diagnosis for this admission?: Yes Plan: Empiric antibiotics initiated, follow-up blood culture and CBC (4) HTN (hypertension) Is this a current diagnosis for this admission?: Yes Plan: Continue ADAN inhibitor - Time Time Spent: 30 to 50 Minutes
[2017-09-04 05:30] LABS: ABSOLUTE BASOPHILS # (AUTO) 0.1 10^3/uL (0.0-0.2); ABSOLUTE EOSINOPHILS # (AUTO) 0.4 10^3/uL (0.0-0.6); ABSOLUTE LYMPHOCYTES (AUTO) 2.1 10^3/uL (0.5-4.7); ABSOLUTE MONOCYTES (AUTO) 1.3 10^3/uL (0.1-1.4); ABSOLUTE NEUT (AUTO) 10.1 10^3/uL (1.7-8.2); BASOPHILS % (AUTO) 0.8 % (0-2); EOSINOPHILS % (AUTO) 2.6 % (0-6); HEMATOCRIT 40.7 % (37.9-51.0); HEMOGLOBIN 14.1 g/dL (13.5-17.0); LYMPHOCYTES % (AUTO) 14.8 % (13-45); MEAN CORPUSCULAR HGB CONC 34.5 g/dL (32.0-36.0); MEAN CORPUSCULAR VOLUME 87 fl (80-97); MONOCYTES % (AUTO) 9.4 % (3-13); PLATELET COUNT 263 10^3/uL (150-450); RED BLOOD COUNT 4.69 10^6/uL (4.35-5.55); RED CELL DISTRIBUTION WIDTH 13.6 % (11.5-14.0); SEGMENTED NEUTROPHILS % (AUTO) 72.4 % (42-78); TOTAL CELLS COUNTED % (AUTO) 100 %; WHITE BLOOD COUNT 13.9 10^3/uL (4.0-10.5)
[2017-09-04] MEDS: HEPARIN SOD (PORCINE) 5,000 UNIT/ML 1 ML SYRINGE SUBCUT SCH ×3 (05:44→21:59)
[2017-09-04] MEDS ORDERED: BACLOFEN 10 MG TABLET PO SCH (08:00)
[2017-09-04] MEDS: HYDROCHLOROTHIAZIDE 12.5 MG CAPSULE PO SCH (09:20)
[2017-09-04] MEDS: LOSARTAN POTASSIUM 50 MG TABLET PO SCH (09:22)
[2017-09-04] MEDS: POTASSIUM CHLORIDE 10 MEQ CAPSULE.ER PO SCH (09:22)
[2017-09-04] MEDS: DOCUSATE SODIUM 100 MG CAPSULE PO SCH ×2 (09:23→17:29)
[2017-09-04] MEDS ORDERED: ALBUTEROL SULFATE HFA (90 MCG/PUFF) 8 GM MDI (1 MDI/ER DISP) IH PRN (09:46)
[2017-09-04] MEDS ORDERED: ALBUTEROL SULFATE HFA (90 MCG/PUFF) 200 PUFF/8.5 GM MDI IH PRN (09:59)
[2017-09-04] MEDS ORDERED: (PENDING PHARMACY ID) (Fluticasone/Vilanterol [Breo Ellipta 100-25 Mcg Inh] 1 EACH) IH SCH (10:00)
[2017-09-04] MEDS ORDERED: DEXTROSE 50%-WATER 25 GM/50 ML DISP.SYRIN IV PRN ×2 (10:21)
[2017-09-04] MEDS ORDERED: GLUCAGON,HUMAN RECOMB 1 MG INJ IM PRN (10:21)
[2017-09-04] MEDS ORDERED: DEXTROSE 40% GEL 15 GM TUBE PO PRN ×2 (10:21)
[2017-09-04] MEDS: VANCOMYCIN HCL 1,500 MG in DEXTROSE 5%-WATER 250 ML IV SCH ×2 (11:08→18:44)
[2017-09-04] MEDS: FLUTICASONE/SALMETEROL DISKUS 250-50 MCG/DOSE IH SCH (11:15)
[2017-09-04] MEDS: FUROSEMIDE 20 MG TABLET PO SCH (11:16)
[2017-09-04] MEDS: CLONIDINE HCL 0.1 MG TABLET PO SCH (11:16)
[2017-09-04] MEDS ORDERED: IPRATROPIUM/ALBUTEROL 0.5-2.5 MG/3 ML AMPUL NEB PRN (12:00)
[2017-09-04] MEDS: IMIPENEM/CILASTATIN SODIUM 500 MG in NORMAL SALINE 100 ML IV SCH ×3 (13:19→23:32)
--- NOTE | 2017-09-04 16:08 | Progress Note ---
Provider Note Provider Note: Konstantin MCCONNELL is a 47 y.o. male who presented to [facility] with LLE cellulitis. Agree with field superintendent plan of care: 1. CELLULITIS: Vancomycin IV Dosed by pharmacy. Added Invanz for better coverage of cellulitis in the diabetic patient as these infections tend to be polymicrobial. Blood cultures pending. Afebrile. 2. DIABETES: Patient states he does not have a PMH of diabetes. Hgb A1c upon arrival 8.0. Initiated Accucheks ACHS and sliding scale humalog insulin 3. HTN: patient endorses history of HTN, continue home dose losartaan, HCTZ, and clonidine
[2017-09-04] MEDS: MONTELUKAST SODIUM 10 MG TABLET PO SCH (21:59)
[2017-09-04] MEDS: INSULIN LISPRO 100 UNIT/ML 3 ML VIAL SUBCUT PRN (23:33)
[2017-09-05] MEDS: VANCOMYCIN HCL 1,500 MG in DEXTROSE 5%-WATER 250 ML IV SCH ×3 (02:42→18:40)
[2017-09-05 05:03] LABS: ABSOLUTE BASOPHILS # (AUTO) 0.1 10^3/uL (0.0-0.2); ABSOLUTE EOSINOPHILS # (AUTO) 0.5 10^3/uL (0.0-0.6); ABSOLUTE LYMPHOCYTES (AUTO) 2.2 10^3/uL (0.5-4.7); ABSOLUTE MONOCYTES (AUTO) 0.9 10^3/uL (0.1-1.4); ABSOLUTE NEUT (AUTO) 6.3 10^3/uL (1.7-8.2); BASOPHILS % (AUTO) 1.2 % (0-2); EOSINOPHILS % (AUTO) 4.9 % (0-6); HEMATOCRIT 42.2 % (37.9-51.0); HEMOGLOBIN 14.8 g/dL (13.5-17.0); LYMPHOCYTES % (AUTO) 22.2 % (13-45); MEAN CORPUSCULAR HEMOGLOBIN 30.7 pg (27.0-33.4); MEAN CORPUSCULAR VOLUME 88 fl (80-97); MONOCYTES % (AUTO) 8.7 % (3-13); PLATELET COUNT 257 10^3/uL (150-450); RED BLOOD COUNT 4.81 10^6/uL (4.35-5.55); RED CELL DISTRIBUTION WIDTH 13.5 % (11.5-14.0); TOTAL CELLS COUNTED % (AUTO) 100 %
[2017-09-05] MEDS: IMIPENEM/CILASTATIN SODIUM 500 MG in NORMAL SALINE 100 ML IV SCH ×3 (05:46→17:36)
[2017-09-05] MEDS: HEPARIN SOD (PORCINE) 5,000 UNIT/ML 1 ML SYRINGE SUBCUT SCH ×3 (05:46→22:38)
[2017-09-05] MEDS: FUROSEMIDE 20 MG TABLET PO SCH (09:04)
[2017-09-05] MEDS: CLONIDINE HCL 0.1 MG TABLET PO SCH (09:06)
[2017-09-05] MEDS: POTASSIUM CHLORIDE 10 MEQ CAPSULE.ER PO SCH (09:07)
[2017-09-05] MEDS: FLUTICASONE/SALMETEROL DISKUS 250-50 MCG/DOSE IH SCH (09:07)
[2017-09-05] MEDS: HYDROCHLOROTHIAZIDE 12.5 MG CAPSULE PO SCH (09:07)
[2017-09-05] MEDS: LOSARTAN POTASSIUM 50 MG TABLET PO SCH (09:07)
[2017-09-05] MEDS: DOCUSATE SODIUM 100 MG CAPSULE PO SCH ×2 (09:09→17:38)
[2017-09-05 09:56] LABS: VANCOMYCIN,TROUGH 14.5 ug/mL (5.0-20.0)
[2017-09-05] MEDS: INSULIN LISPRO 100 UNIT/ML 3 ML VIAL SUBCUT PRN (12:31)
--- NOTE | 2017-09-05 13:58 | RADIOLOGY REPORT (SQ) ---
EXAM DESCRIPTION: VENOUS UNILATERAL LOWER COMPLETED DATE/TIME: 09/05/2017 11:54 am REASON FOR STUDY: evaluate for LLE DVT COMPARISON: 09/09/2015. TECHNIQUE: Dynamic and static davenport scale and color images acquired of the left leg venous system. Se lected spectral images acquired with additional compression and augmentation maneuvers. The contralat eral common femoral vein and saphenofemoral junction were also imaged. Images stored on PACS. LIMITATIONS: None. FINDINGS: COMMON FEMORAL: Normal phasicity, compression and augmentation. No visualized echogenic ma terial on davenport scale. No defects on color images. FEMORAL: Normal compression and augmentation. No visualized echogenic material on davenport scale. No defe cts on color images. POPLITEAL: Normal compression, augmentation. No visualized echogenic material on davenport scale. No defec ts on color images. CALF VESSELS: Normal compression, augmentation. No visualized echogenic material on davenport scale. No de fects on color images. GSV and SSV: Normal compression, augmentation. No visualized echogenic material on davenport scale. No def ects on color images. ANY DEEP VENOUS INSUFFICIENCY: Not evaluated. ANY EVIDENCE OF POPLITEAL CYST: No. OTHER: No other significant finding. CONTRALATERAL COMMON FEMORAL VEIN AND SAPHENOFEMORAL JUNCTION: Normal phasicity, compression and augmentation. No visualized echogenic material on davenport scale. No de fects on color images. IMPRESSION: NO EVIDENCE DVT OR SVT IN THE LEFT LEG. TECHNICAL DOCUMENTATION: JOB ID: [id number] [employer] All Rights Reserved Reading location - IP/workstation name: [email or web address]
--- NOTE | 2017-09-05 14:54 | PDOC PROGRESS REPORT ---
Subjective Progress Note for:: 09/05/17 Reason For Visit: CELLULITIS MORBID OBESITY PRUDENCIO Physical Exam Vital Signs: Temp Pulse Resp BP Pulse Ox 98.1 F 82 24 H 115/64 97 09/05/17 11:17 09/05/17 11:17 09/05/17 11:17 09/05/17 11:17 09/05/17 11:17 General appearance: PRESENT: morbidly obese Head exam: PRESENT: atraumatic Eye exam: PRESENT: conjunctiva pink, PERRLA Mouth exam: PRESENT: moist Neck exam: PRESENT: full ROM Respiratory exam: PRESENT: clear to auscultation nemesio, symmetrical, unlabored Cardiovascular exam: PRESENT: +S1, +S2 Pulses: PRESENT: normal radial pulses, normal dorsalis pedis pul GI/Abdominal exam: PRESENT: normal bowel sounds, soft. ABSENT: tenderness Rectal exam: PRESENT: deferred Extremities exam: PRESENT: full ROM, pedal edema Musculoskeletal exam: PRESENT: ambulatory, full ROM, tenderness - LEFT LOWER EXTREMITY - BELOW THE KNEE Neurological exam: PRESENT: alert, awake, oriented to person, oriented to place , oriented to time, oriented to situation Psychiatric exam: PRESENT: appropriate affect Skin exam: PRESENT: dry, erythema Results Impressions: Venous Doppler Study 09/05/17 00:00 IMPRESSION: NO EVIDENCE DVT OR SVT IN THE LEFT LEG. Status: Imported from PACS Assessment & Plan - Diagnosis (1) Cellulitis of left leg Is this a current diagnosis for this admission?: Yes Plan: Patient endorses 1 week history of swelling and pain to left lower extremity History of cellulitis, typically secondary to abscess or ulceration Patient states he believes that this episode of cellulitis was caused by a bug bite Patient remains afebrile and nontoxic-appearing No significant improvement following approx. 24hrs of antibiotics Venous duplex of left lower extremity negative for DVT Continue Vancomycin IV Dosed by pharmacy Added Invanz yesterday for better coverage of cellulitis in the diabetic patient as these infections tend to be polymicrobial. Blood cultures pending (2) Hyperglycemia Is this a current diagnosis for this admission?: Yes Plan: Patient denies history of DM HGBa1C on admission is 8.0 Patient counseled about dietary choices and the need for diabetes medication compliance Accu-Cheks before meals at bedtime Humalog insulin sliding scale (3) HTN (hypertension) Qualifiers: Hypertension type: essential hypertension Qualified Code(s): I10 - Essential (primary) hypertension Is this a current diagnosis for this admission?: Yes Plan: Patient endorses PMH of HTN Continue home dose medication - Time Time Spent with patient: 15-24 minutes Medications reviewed and adjusted accordingly: Yes Anticipated discharge: Home - Inpatient Certification Based on my medical assessment, after consideration of the patient's comorbidities, presenting symptoms, or acuity I expect that the services needed warrant INPATIENT care.: Yes I certify that my determination is in accordance with my understanding of Medicare's requirements for reasonable and necessary INPATIENT services [42 CFR 412.3e].: Yes Medical Necessity: Need for IV Antibiotics, Risk of Complication if Not Cared For in Hospital - Plan Summary Plan Summary: CONTINUE IV ANTIBIOTICS. WILL OBSERVE FOR IMPROVEMENT TOMORROW MORNING.
[2017-09-05] MEDS: IPRATROPIUM/ALBUTEROL 0.5-2.5 MG/3 ML AMPUL NEB PRN (21:03)
[2017-09-05] MEDS: MONTELUKAST SODIUM 10 MG TABLET PO SCH (22:37)
[2017-09-06] MEDS: VANCOMYCIN HCL 1,500 MG in DEXTROSE 5%-WATER 250 ML IV SCH ×3 (02:28→18:39)
[2017-09-06 05:29] LABS: HEMATOCRIT 41.7 % (37.9-51.0); HEMOGLOBIN 14.7 g/dL (13.5-17.0); MEAN CORPUSCULAR HEMOGLOBIN 30.6 pg (27.0-33.4); MEAN CORPUSCULAR HGB CONC 35.1 g/dL (32.0-36.0); MEAN CORPUSCULAR VOLUME 87 fl (80-97); PLATELET COUNT 283 10^3/uL (150-450); RED BLOOD COUNT 4.79 10^6/uL (4.35-5.55); RED CELL DISTRIBUTION WIDTH 13.5 % (11.5-14.0); WHITE BLOOD COUNT 9.9 10^3/uL (4.0-10.5)
[2017-09-06] MEDS: HEPARIN SOD (PORCINE) 5,000 UNIT/ML 1 ML SYRINGE SUBCUT SCH ×3 (06:05→22:33)
[2017-09-06] MEDS: FUROSEMIDE 20 MG TABLET PO SCH (08:23)
[2017-09-06] MEDS: FLUTICASONE/SALMETEROL DISKUS 250-50 MCG/DOSE IH SCH (08:23)
[2017-09-06] MEDS: INSULIN LISPRO 100 UNIT/ML 3 ML VIAL SUBCUT PRN ×2 (08:23→12:17)
[2017-09-06] MEDS: POTASSIUM CHLORIDE 10 MEQ CAPSULE.ER PO SCH (08:24)
[2017-09-06] MEDS: LOSARTAN POTASSIUM 50 MG TABLET PO SCH (08:24)
[2017-09-06] MEDS: HYDROCHLOROTHIAZIDE 12.5 MG CAPSULE PO SCH (08:24)
[2017-09-06] MEDS: CLONIDINE HCL 0.1 MG TABLET PO SCH (08:24)
[2017-09-06] MEDS: DOCUSATE SODIUM 100 MG CAPSULE PO SCH ×2 (08:25→17:25)
[2017-09-06] MEDS: IPRATROPIUM/ALBUTEROL 0.5-2.5 MG/3 ML AMPUL NEB PRN (09:11)
[2017-09-06] MEDS: ERTAPENEM SODIUM 1 GM in NORMAL SALINE 50 ML IV SCH (10:13)
--- NOTE | 2017-09-06 18:22 | PDOC PROGRESS REPORT ---
Subjective Progress Note for:: 09/06/17 Subjective:: 47-year-old male admitted to [facility] for cellulitis of the LLE. Patient seen this morning on rounds, he is resting comfortably in bed. LLE appears erythematous with +1 pitting edema around the left ankle. Very minimal improvement since first encounter. Palpable DP and PT pulses in left foot. Patient is able to ambulate without difficulty. He states that the pain he has been experiencing the LLE is improving. Patient remains afebrile and nontoxic- appearing. Reason For Visit: CELLULITIS MORBID OBESITY PRUDENCIO Physical Exam Vital Signs: Temp Pulse Resp BP Pulse Ox 97.7 F 86 18 130/81 H 95 09/06/17 07:26 09/06/17 09:13 09/06/17 09:13 09/06/17 07:26 09/06/17 09:13 Intake & Output 09/05/17 09/06/17 09/07/17 06:59 06:59 06:59 Intake Total 1420 550 Output Total 1380 Balance 40 550 Weight 180 kg General appearance: PRESENT: morbidly obese Eye exam: PRESENT: conjunctiva pink, PERRLA Mouth exam: PRESENT: moist Neck exam: PRESENT: full ROM Respiratory exam: PRESENT: clear to auscultation nemesio, symmetrical, unlabored Cardiovascular exam: PRESENT: +S1, +S2 Pulses: PRESENT: normal radial pulses, normal dorsalis pedis pul GI/Abdominal exam: PRESENT: soft. ABSENT: tenderness Rectal exam: PRESENT: deferred Extremities exam: PRESENT: full ROM, pedal edema Musculoskeletal exam: PRESENT: ambulatory, full ROM Neurological exam: PRESENT: alert, awake, oriented to person, oriented to place , oriented to time, oriented to situation Psychiatric exam: ABSENT: homicidal ideation, suicidal ideation Skin exam: PRESENT: erythema - LLE, other - venous stasis discoloration. ABSENT : normal color Results Laboratory Results: 09/06/17 04:46 09/06/17 04:46 WBC 9.9 RBC 4.79 Hgb 14.7 Hct 41.7 MCV 87 MCH 30.6 MCHC 35.1 RDW 13.5 Plt Count 283 Impressions: Venous Doppler Study 09/05/17 00:00 IMPRESSION: NO EVIDENCE DVT OR SVT IN THE LEFT LEG. Status: Imported from PACS Assessment & Plan - Diagnosis (1) Cellulitis of left leg Is this a current diagnosis for this admission?: Yes Plan: Patient endorses 1 week history of swelling and pain to left lower extremity History of cellulitis, typically secondary to abscess or ulceration Patient states he believes that this episode of cellulitis was caused by a bug bite Patient remains afebrile and nontoxic-appearing No significant improvement following approx. 24hrs of antibiotics Venous duplex of left lower extremity negative for DVT Continue Vancomycin IV Dosed by pharmacy Added Invanz yesterday for better coverage of cellulitis in the diabetic patient as these infections tend to be polymicrobial. Blood cultures no growth x 48 hours (2) Hyperglycemia Is this a current diagnosis for this admission?: Yes Plan: Patient denies history of DM HGBa1C on admission is 8.0 Patient counseled about dietary choices and the need for diabetes medication compliance Accu-Cheks before meals at bedtime Humalog insulin sliding scale (3) HTN (hypertension) Qualifiers: Hypertension type: essential hypertension Qualified Code(s): I10 - Essential (primary) hypertension Is this a current diagnosis for this admission?: Yes Plan: Patient endorses PMH of HTN Continue home dose medication - Time Time Spent with patient: 15-24 minutes Medications reviewed and adjusted accordingly: Yes Anticipated discharge: Home - Inpatient Certification Based on my medical assessment, after consideration of the patient's comorbidities, presenting symptoms, or acuity I expect that the services needed warrant INPATIENT care.: Yes I certify that my determination is in accordance with my understanding of Medicare's requirements for reasonable and necessary INPATIENT services [42 CFR 412.3e].: Yes Medical Necessity: Need for IV Antibiotics - Plan Summary Plan Summary: Continue IV antibiotics
[2017-09-06] MEDS: MONTELUKAST SODIUM 10 MG TABLET PO SCH (22:35)
[2017-09-07] MEDS: VANCOMYCIN HCL 1,500 MG in DEXTROSE 5%-WATER 250 ML IV SCH ×2 (02:54→10:04)
[2017-09-07] MEDS: HYDROCHLOROTHIAZIDE 12.5 MG CAPSULE PO SCH (10:01)
[2017-09-07] MEDS: FLUTICASONE/SALMETEROL DISKUS 250-50 MCG/DOSE IH SCH (10:01)
[2017-09-07] MEDS: LOSARTAN POTASSIUM 50 MG TABLET PO SCH (10:02)
[2017-09-07] MEDS: POTASSIUM CHLORIDE 10 MEQ CAPSULE.ER PO SCH (10:02)
[2017-09-07] MEDS: CLONIDINE HCL 0.1 MG TABLET PO SCH (10:02)
[2017-09-07] MEDS: FUROSEMIDE 20 MG TABLET PO SCH (10:03)
[2017-09-07] MEDS: ERTAPENEM SODIUM 1 GM in NORMAL SALINE 50 ML IV SCH (10:04)
[2017-09-07] MEDS: HEPARIN SOD (PORCINE) 5,000 UNIT/ML 1 ML SYRINGE SUBCUT SCH ×2 (10:06→13:02)
[2017-09-07] MEDS: DOCUSATE SODIUM 100 MG CAPSULE PO SCH (10:06)
[2017-09-07 12:57] VITALS: BP 128/74
[2017-09-07] MEDS: IPRATROPIUM/ALBUTEROL 0.5-2.5 MG/3 ML AMPUL NEB PRN (13:25)
--- NOTE | 2017-09-10 15:21 | PDOC DISCHARGE SUMMARY ---
General - Admit/Disc Date/PCP Admission Date/Primary Care Provider: 09/05/17 12:18 ROSALEE ANETTE MARTINEZ Discharge Date: 09/07/17 - Discharge Diagnosis (1) Cellulitis of left leg Is this a current diagnosis for this admission?: Yes (2) Hyperglycemia Is this a current diagnosis for this admission?: Yes (3) HTN (hypertension) Is this a current diagnosis for this admission?: Yes - Additional Information Resuscitation Status: Full Code Discharge Diet: Diabetic Discharge Activity: Activity As Tolerated Prescriptions: Hydrochlorothiazide [Hydrodiuril 12.5 mg Capsule] 12.5 mg PO QAM #30 capsule Insulin Lispro [Humalog Thomas Kwikpen] 100 unit SQ ACHS #1 ins.pen.hf Sulfamethoxazole/Trimethoprim [Sulfamethoxazole-Tmp Ds Tablet] 2 each PO BID # 14 tablet Home Medications: Potassium Chloride 10 meq PO DAILY 09/10/15 Losartan/Hydrochlorothiazide [Hyzaar 100-12.5 Tablet] 1 each PO DAILY 12/27/16 Albuterol Sulfate [Albuterol Sulfate 2.5mg/3 mL] 2.5 mg IH 5XD 09/04/17 Albuterol Sulfate [Proair HFA] 2 puff IH Q4HP PRN 09/04/17 Clonidine HCl 0.1 mg PO Q12 09/04/17 Fluticasone/Salmeterol [Advair 250-50 Diskus 28 dose] 1 inh IH BID 09/04/17 Furosemide 20 mg PO DAILY 09/04/17 Loratadine [Claritin 10 mg Tablet] 10 mg PO DAILY 09/04/17 Montelukast Sodium 10 mg PO QHS 09/04/17 Naproxen Sodium [Aleve] 220 mg PO DAILY 09/04/17 Hydrochlorothiazide [Hydrodiuril 12.5 mg Capsule] 12.5 mg PO QAM #30 capsule Insulin Lispro [Humalog Thomas Kwikpen] 100 unit SQ ACHS #1 ins.pen.hf 09/07/17 Sulfamethoxazole/Trimethoprim [Sulfamethoxazole-Tmp Ds Tablet] 2 each PO BID # 14 tablet 09/07/17 History of Present Illness History of Present Illness: Completed by Dr. Reese: KONSTANTIN MCCONNELL is a 47 year old male with a past medical history of morbid obesity, obstructive sleep apnea, venous stasis, borderline diabetes, hypertension, COPD and tobacco dependence. He presents with 1 week of pain and swelling to his left leg which is developed circumferential erythema without open ulcer or exudate. In the emergency room he is found to have leukocytosis he receives IV vancomycin and referred to the hospitalist for admission. He admits multiple previous episodes he denies recent antibiotic use, trauma, chest pain or shortness of breath. Hospital Course Hospital Course: Konstantin Mcconnell is a 47 y.o. M admitted to [facility] for cellulitis in the LLE. The patient endorsed a 1 week history of swelling and pain to left lower extremity. He also reported a history of cellulitis, typically secondary to abscess or ulceration. The patient stated that he believed this episode of cellulitis was caused by a bug bite, although he could not identify a bite maegan on his leg. The patient had notable skin discoloration on both legs, the patient denied ever being diagnosed with venous insufficiency. The erythema on the LLE was circumfrential and there was swelling to the medial ankle. The patient was initially treated with clindamycin. His symptoms were not improving and it was discovered that he was diabetic, so his antibiotic coverage was broadened to Vanc/Ertapenem for better polymicrobial coverage, which tends to be the source in diabetic patients. Venous duplex of left lower extremity was performed, results were negative for DVT. Blood cultures were negative x 72 hours. In addition to cellulitis, the patient was treated for diabetes. Patient denies history of DM but his HGBa1C on admission was 8.0. The patient was started on sliding scale insulin and met with the career services assistant. Following 48 hours in the hospital, the patient was discharged home on PO antibiotics and insulin. The patient diagnosed with stasis dermatitis with an superimposed cellulitis infection. He was encouraged to follow up with his PMD regarding further evaluation of peripharal vascular disease, as well monitoring of his new insulin regimen. Physical Exam Vital Signs: Temp Pulse Resp BP Pulse Ox 97.8 F 82 16 128/74 H 96 09/07/17 12:53 09/07/17 13:25 09/07/17 13:25 09/07/17 12:53 09/07/17 13:25 Results Laboratory Results: 09/06/17 04:46 Impressions: Venous Doppler Study 09/05/17 00:00 IMPRESSION: NO EVIDENCE DVT OR SVT IN THE LEFT LEG. Status: Imported from PACS Qualifiers - * PATIENT BEING DISCHARGED WITH ANY OF THE FOLLOWING DIAGNOSIS: No Plan Time Spent: Less than 30 Minutes
== END 2017-09-07 15:35 | disposition home or self-care (01) | DRG 603 ==
LOC: ER 20:57 → EH 09-04 00:59 → 3N 09-04 02:44 → OBSVTOIN 09-05 12:18
PROVIDERS: ADMIT Internal Medicine; ATTEND Internal Medicine
DX: L03.116 Cellulitis of left lower limb (principal); Z68.43 Body mass index [BMI] 50.0-59.9, adult; I10 Essential (primary) hypertension; E11.65 Type 2 diabetes mellitus with hyperglycemia; E66.01 Morbid (severe) obesity due to excess calories; G47.33 Obstructive sleep apnea (adult) (pediatric); I87.8 Other specified disorders of veins; J44.9 Chronic obstructive pulmonary disease, unspecified; F17.210 Nicotine dependence, cigarettes, uncomplicated; Z79.4 Long term (current) use of insulin; Z79.899 Other long term (current) drug therapy; Z79.51 Long term (current) use of inhaled steroids
CPT/HCPCS: 36415; 80053; 80202; 81001; 82962; 83036; 85025; 85027; 85610; 87040; 87086; 87088; 93971; 94640; 94660; 96365; 96375; 99284; G0378; J0696; J0743; J1335; J1644; J1815; J3370; J3490; J7060; J7620